=== PATIENT | female | born 1960 | race Caucasian/White ===

== ENCOUNTER 2021-03-07 18:41 | Emergency (ER) | payer OTHER ==
[~2021-03-07] VITALS: Ht 179.1 cm; Wt 151.0 kg
[~2021-03-07 18:41] MED LIST: DAPSONE100 MG PO; DAPSONE25 MG PO; FAMOTIDINE20 MG PO; FOLIC ACID1 MG PO; LACTULOSE20 GM/30 M PO; LEVOTHYROXINE75 MCG PO; NORCO 10-325 T1 EACH PO; PLAQUENIL200 MG PO; SOMA350 MG PO; TESSALON PERLE100 MG PO; ZYRTEC10 M3 PO; eliquis PO
== END 2021-03-07 19:21 | disposition home or self-care (01) ==
LOC: ER 18:48
DX: R10.9 Unspecified abdominal pain (principal); R19.7 Diarrhea, unspecified; I10 Essential (primary) hypertension; I25.10 Atherosclerotic heart disease of native coronary artery without angina pectoris; D64.9 Anemia, unspecified; N18.9 Chronic kidney disease, unspecified; M32.9 Systemic lupus erythematosus, unspecified; Z86.718 Personal history of other venous thrombosis and embolism
CPT/HCPCS: 99282